=== PATIENT | male | born 1950 | race Caucasian/White ===

== ENCOUNTER 2016-09-18 12:03 | Inpatient (IN) ==
--- NOTE | 2016-09-15 14:49 | Discharge Summary ---
<Sarah Beverly - Last Filed: 09/17/16 21:26> Date of Encounter: 09/17/16 - Discharge Diagnosis (1) Arthritis of knee, right Priority: Primary Status: Acute (2) HTN (hypertension) Priority: Secondary Status: Chronic Qualifiers: Hypertension type: essential hypertension Qualified Code(s): I10 - Essential (primary) hypertension (3) Tobacco abuse Priority: Secondary Status: Chronic (4) RODGER (obstructive sleep apnea) Priority: Secondary Status: Chronic - Discharge Medications Home Medications: Amlodipine [Amlodipine Besylate] 10 mg PO DAILY 02/26/15 [History] Finasteride [Proscar] 5 mg PO HS 02/26/15 [History] Niacin 500 mg PO BID 02/26/15 [History] Coconut Oil 1,000 mg PO DAILY 09/13/16 [History] Losartan/Hydrochlorothiazide [Hyzaar 100-12.5 Tablet] 1 each PO DAILY 09/13/16 [ History] Rosuvastatin Calcium [Crestor] 20 mg PO DAILY 09/13/16 [History] Aspirin Enteric Coated [Aspirin EC] 325 mg PO DAILY #21 tablet. 09/17/16 [Rx] OxyCODONE Immed Rel [Roxicodone 5 MG] 5 - 10 mg PO Q6HR PRN #40 tablet 09/17/16 [Rx] Cholecalciferol (D-3) [Vitamin D] 1,000 unit PO DAILY 09/18/16 [History] Cyanocobalamin (Vitamin B-12) [Vitamin B-12] 1,000 mcg SL DAILY 09/18/16 [ History] Loratadine/Pseudophed (12 HR) [Claritin D (12HR)] 1 each PO DAILY 09/18/16 [ History] Multivitamin [One Daily Essential] 1 each PO DAILY 09/18/16 [History] Allergies/Adverse Reactions: Allergies Temazepam [From Restoril] Adverse Reaction (Mild, Verified 09/18/16 13:24) Hallucinating Primary care physician: No Farley - Patient Status Disposition: Home, Self-Care Condition: Good - Discharge Instructions Follow Up With: Naresh Meediros MD [Partnered Physician] - 10/17/16 8:20 am Sarah Beverly PAC [Physician Healthcare Financial Analyst] - 09/28/16 9:00 am No Farley MD [Primary Care Provider] - 01/30/17 10:15 am Additional Instructions: Discharge Instructions: Total Knee Replacement Please call [facility] ([phone]), your Primary Care Physician, or report to the Emergency Room if you have any of the following symptoms: Nausea, vomiting, fever greater that 101.5, swelling, chest pain, shortness of breath, increased pain/redness/drainage/odor for your incision site, numbness/ tingling, or any other concerning symptoms. ACTIVITY:Weight-bearing as tolerated. You may progress off support (cruthches or walker) as tolerated. MEDICATIONS: Upon discharge resume your home medications. Take all the medications as prescribed. Take a stool softener if taking narcotic pain medications. Stool softeners are only effective if you drink enough fluids. Drink 6-8 glass of water or fluids a day, unless this is not allowed for another health problem. Despite using stool softeners, if you haven't had a bowel movement in 3 days, please switch to a gentle laxative. Gentle laxatives are sold over the counter. You should have a bowel movement within 24 hours, if not call the office. You will be discharged from the hospital with a prescription for pain medication. You are encouraged to decrease the use of narcotic pain medication as tolerated. Should you require a refill, please call the office. [facility] prescribes narcotic pain medication for only 4-6 weeks after surgery. If you require pain medication beyond this time periord, you may be referred to your Primary Care Physician or to the Pain Clinic for further evaluation. Plan ahead for refills on pain medication as many narcotics either need to be picked up at the office or mailed. It is best to call 48-72 hours in advance of needing a prescription refill so you don't run out of medication. To help control the post-operative pain, you may take NSAIDs (Aleve,Advil, Motrin, ibuprofen, naprosyn) or Tylenol as prescribed on the bottle in addition to the pain medication. ANTICOAGULATION (blood thinners): Continue your Aspirin, Lovenox or Coumadin as prescribed to help prevent a blood clot in the leg or in the lungs. As long as your incision remains dry and you tolerate the NSAIDs (Aleve, Advil, Motrin, ibuprofen, naprosyn), it is OK to use the NSAIDS while you are taking your anticoagulation medication. Should your incision start to drain, stop the NSAID and contact our office. Common symptoms of blood clot in the legs include: localized pain, swelling, calf tenderness, redness or discoloration of the skin. Blood clot in the lung symptoms include: shortness of breath, rapid pulse, sweating, and chest pain that worsens with deep breathing, coughing up blood, lightheadedness, feelings of anxiety. If you experience any of these symptoms notify your physician immediately, go to the emergency room, or if having trouble breathing, call 911. WOUND CARE: Leave the dressing on for 7 days. You may change the dressing if it becomes saturated greater than 50%. You can shower but not a tub bath or submerge your incision in water. Wash your hands with antibacterial soap, rinse and dry prior to any wound care. If you have merlin the visiting nurse or rehab facility can remove the stapes 10-14 days [address] surgery [address] steri- strips across the wound. Leave the steri-strips in place until they fall off on their won. You may let water from the shower run on top of the steri-stirips. If you do not have a visiting nurse or rehab facility, you will need to return to the office at 10-14 days for the merlin to be removed. FOLLOW-UP: Please follow up with your surgeon in the orthopedic clinic in 4 weeks from the day of surgery. If you have merlin that need to be removed, you will need to come back to the office in 10-14 days from the day of surgery. - Hospital Course Hospital course: Mr. Hoffmann is a 66 year old male - Time Spent with Patient Total time spent providing and/or coordinating discharge services: <Naresh Medeiros - Last Filed: 09/20/16 08:31> Date of Encounter: 09/20/16 Time of Encounter: 08:30 - Discharge Diagnosis (1) Arthritis of knee, right Priority: Primary Status: Acute (2) HTN (hypertension) Priority: Secondary Status: Chronic Qualifiers: Hypertension type: essential hypertension Qualified Code(s): I10 - Essential (primary) hypertension (3) Tobacco abuse Priority: Secondary Status: Chronic (4) RODGER (obstructive sleep apnea) Priority: Secondary Status: Chronic Primary care physician: No Farley - Patient Status Functional capacity at discharge: uses cane/walker Overall status at discharge: patient is progressing back to baseline - Hospital Course Hospital course: Mr. Hoffmann is a 66 year old male The patient had an uneventful postoperative course. They received antibiotics and physical therapy and were discharged in stable condition. There will follow -up in the office in 2 weeks. Aspirin DVT prophylaxis - Time Spent with Patient Total time spent providing and/or coordinating discharge services:
[2016-09-18] MEDS ORDERED: Albuterol 2.5 MG/3 ML NEBULIZER IH ONE (12:16)
[2016-09-18] MEDS ORDERED: CeFAZolin Pre 2,000 MG/100 ML 2,000 MG/100 ML BAG IVPB ONE (12:16)
[2016-09-18] MEDS ORDERED: Lidocaine -MPF 1% 2 ML VIAL ID ONE (12:16)
--- NOTE | 2016-09-18 12:21 | History & Physical Report ---
Date of Encounter: 09/18/16 Time of Encounter: 12:21 24 Hour HP Update - Instructions Instructions: If the History and Physical is less than 30 days old and was completed prior to A.M. admission and or procedure and has NOT been updated on calendar day of procedure please complete this update prior to performing procedure. - Update Patient reports changes in Medical Condition: No Changes in examination, assessment, or condition: No Changes in Medication: No Preop tests/diagnostics Reviewed: Yes Surgery Remains Indicated: Yes Consent for Planned Operative Procedure(s) Verified: Yes - Pre-Operative Checklist Preoperative Checklist Indicated: No Prophylactic Antibiotic Ordered: Yes Is VTE Prophylaxis Indicated?: Yes
[2016-09-18] MEDS ORDERED: Ringers Solution, Lactated 1,000 ML IVC SCH (12:30)
[2016-09-18] MEDS ORDERED: *HR* Propofol 200 MG/20 ML VIAL IVP ONE (12:37)
[2016-09-18] MEDS ORDERED: *HR* FentaNYL (PF) 100 MCG/2 ML VIAL ONE ×2 (12:37→15:26)
[2016-09-18] MEDS ORDERED: *HR* Midazolam HCl 2 MG/2 ML VIAL ONE (12:37)
[2016-09-18] MEDS ORDERED: Vancomycin 1,500 MG in D5% in Water 250 ML IVPB ONE (13:04)
[2016-09-18] MEDS ORDERED: Famotidine 20 MG/2 ML VIAL IVP ONE (13:21)
--- NOTE | 2016-09-18 13:24 | Anesthesia Evaluation PreOp ---
Date of Encounter: 09/18/16 Time of Encounter: 13:20 - Past History Planned Operation: Rt TKA Cardiac History: HTN, Hyperlipidemia Pulmonary History: Smoker, RODGER Dx (newly diagnosed, not on CPAP) DRUG AND ALCOHOL COUNSELLOR History: Denies Any Significant HX Other Medical History: Denies Any Significant HX Anesthesia History: No Prior Anesthetic Complications Alcohol Use: rarely Drug use: none Medications and Allergies Amlodipine [Amlodipine Besylate] 10 mg PO DAILY 02/26/15 [History] Finasteride [Proscar] 5 mg PO HS 02/26/15 [History] Losartan [Cozaar] 50 mg PO DAILY 02/26/15 [History] Niacin 500 mg PO BID 02/26/15 [History] Coconut Oil 1,000 mg PO DAILY 09/13/16 [History] Desloratadine/Pseudoephedrine [Clarinex-D 12 Hour Tablet] 1 each PO DAILY [History] Losartan/Hydrochlorothiazide [Hyzaar 100-12.5 Tablet] 1 each PO DAILY 09/13/16 [ History] Rosuvastatin Calcium [Crestor] 20 mg PO DAILY 09/13/16 [History] Aspirin Enteric Coated [Aspirin EC] 325 mg PO DAILY #21 tablet. 09/17/16 [Rx] OxyCODONE Immed Rel [Roxicodone 5 MG] 5 - 10 mg PO Q6HR PRN #40 tablet 09/17/16 [Rx] Allergies Temazepam [From Restoril] Adverse Reaction (Mild, Verified 09/13/16 08:15) Hallucinating - Meds/Allergy Pre-op Review Medications Reviewed: Yes Allergies Reviewed: Yes Beta Blockers on Current Med List: No Anesthesia Results - Labs Laboratory Tests 02/02/15 02/02/15 09/05/16 11:22 11:22 09:50 Hgb 15.8 16.3 Hct 48.2 48.2 Plt Count 246 225 Sodium 140 Potassium 3.8 BUN 20 Creatinine 0.90 09/05/16 09:50 Hgb Hct Plt Count Sodium 141 Potassium 3.7 BUN 17 Creatinine 1.00 - Imaging EKG: report reviewed (SR) Additional studies: ECHO 2016 LVEF 60-65% Anesthesia Exam O2 Sat Height 1.73 m Height 1.73 m Height 1.73 m Height 1.74 m Weight 93.894 kg Weight 93.894 kg Weight 93.894 kg Weight 102.058 kg O2 Sat by Pulse Oximetry 95 O2 Sat by Pulse Oximetry 95 Vital Signs Temp Pulse Resp BP Pulse Ox 98.4 F 86 18 148/91 95 09/18/16 12:25 09/18/16 12:25 09/18/16 12:25 09/18/16 12:25 09/18/16 12:25 Height: 5'8 Weight: 207 lbs NPO (# of Hours): MN Pain Scale: 0 - HEENT Pupil (Motor): Pupils equal, EOMI Mallampati: II Teeth: Normal Oral Opening: Greater than 3 - DRUG AND ALCOHOL COUNSELLOR LOC: Oriented DRUG AND ALCOHOL COUNSELLOR Motor: Normal RUE, Normal LUE, Normal RLE, Normal LLE, Normal Face DRUG AND ALCOHOL COUNSELLOR Sensory: Normal: RUE, LUE, RLE, LLE, Face - Cardiac Rhythm: Regular Murmur: None JVD: No Carotid Bruit: No - Pulmonary Breath Sounds: bilateral Clear Respiratory Effort: Symmetrical Anesthesia Assess/Plan ASA Score: 2 Modified Casco Scale for Level of Consciousness: Cooperative, oriented, and tranquil Anesthetic Plan: General, Regional Monitoring Plan: Standard Monitors Recovery Plan: PACU (Discussed GA, agrees to proceed)
[2016-09-18] MEDS ORDERED: Ondansetron 4 MG/2 ML VIAL IVP ONE (14:02)
[2016-09-18] MEDS ORDERED: *HR* HYDROmorphone (PF) 1 MG/ML SYRINGE IVP PRN (14:02)
[2016-09-18] MEDS ORDERED: *HR* Promethazine 25 MG/ML VIAL IVP PRN (14:02)
[2016-09-18] MEDS ORDERED: ROPIVACAINE HCL/PF 0.5% 30 ML VIAL ONE (14:33)
[2016-09-18] MEDS ORDERED: Tetracaine/PF 20 MG/2 ML AMPUL SPINA ONE (14:33)
--- NOTE | 2016-09-18 15:23 | Anesthesia Procedures ---
Date of Encounter: 09/18/16 Time of Encounter: 14:40 Procedures: Anesthesia - Nerve Block Procedure Date: 09/18/16 Time: 14:40 Checklist: Correct Patient Identifier, Correct procedure Correct side: Right Monitor Applied: EKG, BP, Pulse Oximetry Supplemental Oxygen via Nasal Cannula (L/min): 2 Sedation: Versed (mg): 2 Sedation: Fentanyl (mcg): 100 Indication: Post Op Analgesia Pre-op Neuro Deficits: No Block Type: Femoral, Other (iPACK) Catheter placed: No Sterile Technique: Yes Ultrasound used: Yes Anatomy identified: Yes Visual spread of Local: Yes Neuro Stimulation: Yes Nerve Stimulator Range: 0.2 - 0.4 mA Blood on Needle Aspiration: No Smooth Injection of Local: Yes Pain with Injection of Local: No Prep: Chlorhexadine Needle: 22 x 50 mm Stimuplex Local: Ropivacaine (0.5% femoral and 0.25% iPACK) Volume (cc): 30 femoral 20 iPACK Number of Attempts: 1 Complications: None/effective block Vitals: VSS
[2016-09-18] MEDS ORDERED: EPHEDrine 50 MG/ML VIAL ONE (15:31)
[2016-09-18] MEDS ORDERED: Ketorolac 30 MG/ML VIAL ONE (15:44)
--- NOTE | 2016-09-18 15:45 | Orthopedic Operative Note ---
Date of procedure: 09/18/16 Pre-op diagnosis: Right knee arthritis Post-op diagnosis: same Procedure: Procedure: Right Total knee replacement Estimated blood loss: 200 cc Hardware: Arthrex Femur: 8 Tibia: 8 PS insert: 12 Patella: 40 Exam Under anesthesia: Varus alignment 10 degrees loss of extension and full flexion Procedural Notes: Grade 4 arthritic changes medial compartment patellofemoral joint. Operative procedure: The patient was brought to the operating room and placed on the operating room table. After general anesthesia was administered the operative knee was examined. Findings were noted in the exam under anesthesia. The operative extremity was prepped and draped in sterile surgical fashion. The patient received IV antibiotics prior to skin incision. A standard midline incision was made centered over the patella. The incision was made through the skin and subcutaneous tissue. A medial parapatellar tendon approach was performed. Care was taken to preserve tissue along the medial aspect of the patella. And to protect the patella tendon. The deep MCL was released off the medial tibia. The infra patella fat pad was excised. Knee was brought into flexion. Patient noted to have grade 4 arthritic changes medial compartment patellofemoral joint. The entry hole was made for the intramedullary femoral guide. The guide was seated in 6 degrees of valgus. Anterior cut was made followed by the distal cut. The ACL the PCL the medial and the lateral menisci were excised. The tibia was subluxed forward. The entry hole was made for the intramedullary tibial guide. Guide was seated to resect 2 mm off the more abnormal side. The knee was brought into flexion the distal femur was sized to an 8. The femoral guide was seated, the anterior cut was made followed by the posterior condylar cut, followed by the chamfer cuts. The finishing guide was seated the box cut was made and the lug holes were drilled. The tibia was sized to an 8, the tibial tray was seated and prepared with the large drill followed by the fin cutter. Trial reduction revealed full extension no varus valgus instability with the appropriate 12 PS Alison. The patella was everted and cut was made at the level of the insertion of the quadriceps and patella tendon. The patella was sized to a 40 the guide was seated and the lug holes are drilled. Trial reduction revealed excellent patella tracking. All trial components were removed all bony surfaces were irrigated. The tibia was cemented first followed by the femur. The 12 PS Alison was seated and the knee was brought into full extension. The patella was cemented and held in place with the patellar holding clamp. After the cement had hardened, the knee sat for 2 minutes with a Betadine saline solution. The knee was then irrigated out with 2 L of pulse irrigation. The extensor mechanism was closed with #2 FiberWire suture and #2 PDS suture. The subcutaneous tissue was then irrigated and closed deep with #1 PDS suture superficially with 0 PDS suture and skin was closed with skin merlin. The patient was then placed in a sterile dressing and a postoperative brace extubated and transferred to recovery room in stable condition. Anesthesia: GETColeman Surgeon: Naresh Medeiros Rod Cup Filler: Sarah Beverly Condition: stable Disposition: PACU
--- NOTE | 2016-09-18 16:47 | Anesthesia Evaluation Post Op ---
Date of Encounter: 09/18/16 Time of Encounter: 16:47 - Vital Signs Vital Signs: Vital Signs/O2 Sat, Most Current Temp Pulse Resp BP Pulse Ox 98.9 F 70 14 137/79 96 09/18/16 16:42 09/18/16 16:42 09/18/16 16:42 09/18/16 16:42 09/18/16 16:42 - Lungs Lungs: Clear Ascult./Percussion - Airway Airway: Non-obstructed - Cardiovascular Regular Rate - Mental Status Mental Status: Alert & Oriented, Answers Appropriately - Pain Pain Scale: 3 Pain Scale used: Numeric (1 - 10) - Nausea Vomiting Nausea Vomiting: Not Present - Hydration Hydration: Ice chips, Has not voided - Discharge PostOp Status: Transfer Patient to floor
[2016-09-18] MEDS ORDERED: Naloxone 0.4 MG/ML INJ IVP PRN (17:11)
[2016-09-18] MEDS ORDERED: *HR* OxyCODONE Immed Rel 5 MG TABLET PO PRN (17:11)
[2016-09-18] MEDS ORDERED: Temazepam 15 MG CAPSULE PO PRN (17:11)
[2016-09-18] MEDS ORDERED: Acetaminophen 325 MG TABLET PO PRN (17:11)
[2016-09-18] MEDS ORDERED: Sennosides 8.6 MG TABLET PO PRN (17:11)
[2016-09-18] MEDS ORDERED: MOM Conc 10 ML UD.LIQ PO PRN (17:11)
[2016-09-18] MEDS: Ringers Solution, Lactated 1,000 ML IVC SCH (17:52)
[2016-09-18] MEDS: *HR* OxyCODONE Immed Rel 5 MG TABLET PO PRN (17:52)
[2016-09-18] MEDS: *HR* Enoxaparin 30 MG/0.3 ML SYRINGE SQ SCH (17:54)
[2016-09-18] MEDS ORDERED: *HR* Enoxaparin 30 MG/0.3 ML SYRINGE SQ SCH (18:00)
[2016-09-18 19:43] LABS: Hematocrit 45.1 % (37.5-50.1); Hemoglobin 14.6 g/dL (12.9-16.9)
[2016-09-18] MEDS: NIACIN 500 MG PO SCH (21:37)
[2016-09-18] MEDS: Finasteride 5 MG TABLET PO SCH (21:40)
[2016-09-19] MEDS: *HR* Enoxaparin 30 MG/0.3 ML SYRINGE SQ SCH ×2 (05:05→17:56)
[2016-09-19] MEDS: *HR* HYDROmorphone (PF) 1 MG/ML SYRINGE IVP PRN ×2 (05:06→21:04)
[2016-09-19] MEDS: Ringers Solution, Lactated 1,000 ML IVC SCH (05:06)
--- NOTE | 2016-09-19 06:51 | Orthopedics Progress Note ---
Date of Encounter: 09/19/16 Time of Encounter: 06:50 - Assessment and Plan (1) Arthritis of knee, right Current Visit: Yes Status: Acute (2) HTN (hypertension) Current Visit: Yes Status: Chronic Qualifiers: Hypertension type: essential hypertension Qualified Code(s): I10 - Essential (primary) hypertension (3) Tobacco abuse Current Visit: Yes Status: Chronic (4) RODGER (obstructive sleep apnea) Current Visit: Yes Status: Chronic Subjective Interval history: Patient was seen this morning doing well without complaints. Afebrile vital signs stable. Operative extremity: Neurovascularly intact Dressing clean dry and intact Calves nontender Assessment and plan: Continue with postoperative care Hematocrit 45 Objective Vital signs: Vital Signs Temp Pulse Resp BP Pulse Ox 09/19/16 06:45 97.9 F 90 18 149/85 94 09/19/16 04:00 98.0 F 75 16 121/80 97 09/18/16 23:49 98.0 F 75 17 130/81 97 09/18/16 22:23 97 09/18/16 20:00 97.8 F 77 18 131/84 97 09/18/16 19:00 97.7 F 74 18 129/83 96 09/18/16 18:00 97.6 F 76 18 143/80 93 09/18/16 17:30 97.8 F 80 18 134/80 94 09/18/16 17:00 97.5 F L 79 18 136/85 93 09/18/16 16:42 98.9 F 70 14 137/79 96 09/18/16 16:32 82 14 133/83 98 09/18/16 16:22 79 14 124/80 93 09/18/16 16:12 98.5 F 88 14 138/82 94 09/18/16 14:44 84 16 132/90 95 09/18/16 12:32 18 95 09/18/16 12:25 98.4 F 86 18 148/91 95 Intake and Output 09/18/16 09/18/16 09/19/16 15:59 23:59 07:59 Intake Total 1850 / 1850 Output Total 1825 / 1825 1350 / 1350 Balance -1825 / -1825 500 / 500 Intake: IV Fluids 700 / 700 Lactated Ringers 1,000 ML 700 / 700 @ 75 mls/hr IVC .[id number] [facility] Rx#:[id number] Oral 1150 / 1150 Output: Urine 1625 / 1625 1350 / 1350 Estimated Blood Loss 200 / 200 Other: Weight 93.894 kg - Labs CBC & BMP: 09/18/16 18:55 - VTE Documentation of Mechanical Device: Venous foot pump, device Consult Discharge Plan - Plan Referrals: No Farley MD [Primary Care Provider] -
[2016-09-19 07:04] LABS: Hematocrit 40.9 % (37.5-50.1); Hemoglobin 13.5 g/dL (12.9-16.9)
[2016-09-19 07:23] LABS: BUN/Creatinine Ratio 15 (6-26); Blood Urea Nitrogen 13 mg/dL (8-26); Calcium 9.1 mg/dL (8.6-10.8); Carbon Dioxide 20 mEq/L (19-29); Chloride 107 mEq/L (98-109); Glucose 132 mg/dL (70-99); Osmolality,Calculated 292 (280-300); Potassium 3.9 mEq/L (3.5-4.5); Sodium 140 mEq/L (136-145); eGFR For African Americans > 60 (> 60); eGFR For Non-African Americans > 60 (> 60)
[2016-09-19] MEDS: Cyanocobalamin (B-12) 1,000 MCG TABLET PO SCH (09:28)
[2016-09-19] MEDS: Loratadine/Pseudophed (12 HR) 1 EACH TABLET PO SCH (09:28)
[2016-09-19] MEDS: *HR* OxyCODONE Immed Rel 5 MG TABLET PO PRN ×3 (09:28→17:56)
[2016-09-19] MEDS: Multivit/Ca/Min/Fe/FA 1 TAB TABLET PO SCH (09:28)
[2016-09-19] MEDS: amLODIPine 5 MG TABLET PO SCH (09:28)
[2016-09-19] MEDS: Cholecalciferol (D-3) 1,000 UNIT TABLET PO SCH (09:28)
[2016-09-19] MEDS: NIACIN 500 MG PO SCH ×2 (09:29→21:04)
[2016-09-19] MEDS: COCONUT OIL 1000 MG PO SCH (09:29)
[2016-09-19] MEDS: Ondansetron 4 MG/2 ML VIAL IVP PRN (12:27)
[2016-09-19] MEDS ORDERED: Vancomycin 1,500 MG in D5% in Water 250 ML IV ONE (14:35)
[2016-09-19] MEDS ORDERED: ceFAZolin 2,000 MG in D5% in Water 100 ML IVPB SCH (18:00)
[2016-09-19] MEDS: Finasteride 5 MG TABLET PO SCH (21:04)
[2016-09-20] MEDS: Ondansetron 4 MG/2 ML VIAL IVP PRN (01:18)
[2016-09-20] MEDS: *HR* OxyCODONE Immed Rel 5 MG TABLET PO PRN ×2 (01:20→10:02)
[2016-09-20] MEDS: *HR* Enoxaparin 30 MG/0.3 ML SYRINGE SQ SCH (05:29)
[2016-09-20 06:43] LABS: Hematocrit 36.3 % (37.5-50.1)
[2016-09-20 06:53] LABS: Hemoglobin 11.7 g/dL (12.9-16.9)
[2016-09-20 07:03] LABS: BUN/Creatinine Ratio 15 (6-26); Blood Urea Nitrogen 13 mg/dL (8-26); Calcium 9.3 mg/dL (8.6-10.8); Carbon Dioxide 22 mEq/L (19-29); Chloride 105 mEq/L (98-109); Glucose 148 mg/dL (70-99); Osmolality,Calculated 291 (280-300); Potassium 3.9 mEq/L (3.5-4.5); Sodium 139 mEq/L (136-145); eGFR For African Americans > 60 (> 60); eGFR For Non-African Americans > 60 (> 60)
[2016-09-20 07:16] VITALS: BP 145/80
--- NOTE | 2016-09-20 08:32 | Orthopedics Progress Note ---
Date of Encounter: 09/20/16 Time of Encounter: 08:31 - Assessment and Plan (1) Arthritis of knee, right Current Visit: Yes Status: Acute (2) HTN (hypertension) Current Visit: Yes Status: Chronic Qualifiers: Hypertension type: essential hypertension Qualified Code(s): I10 - Essential (primary) hypertension (3) Tobacco abuse Current Visit: Yes Status: Chronic (4) RODGER (obstructive sleep apnea) Current Visit: Yes Status: Chronic Subjective Interval history: Patient was seen this morning doing well without complaints. Afebrile vital signs stable. Operative extremity: Neurovascularly intact Dressing clean dry and intact Calves nontender Assessment and plan: Continue with postoperative care discharged today Objective Vital signs: Vital Signs Temp Pulse Resp BP Pulse Ox 09/20/16 07:15 99.1 F 90 16 145/80 93 09/20/16 04:21 98.5 F 89 16 132/74 92 09/20/16 00:39 98.0 F 92 16 157/71 95 09/19/16 20:31 98.2 F 89 16 143/80 90 09/19/16 15:44 98.2 F 90 18 132/71 93 09/19/16 11:07 97.8 F 89 18 145/77 93 Intake and Output 09/19/16 09/20/16 09/20/16 23:59 07:59 15:59 Intake Total 1250 / 1250 Output Total 150 / 150 Balance 1100 / 1100 Intake: IV Fluids 1250 / 1250 Vancocin 1,500 MG In 250 / 250 Dextrose 5% 250 ML @ 167 mls/hr IV ONCE ONE Rx#: [id number] Lactated Ringers 1,000 ML 1000 / 1000 @ 75 mls/hr IVC .[id number] [facility] Rx#:[id number] Output: Urine 150 / 150 Other: # Voids 1 - Labs CBC & BMP: 09/20/16 06:14 09/20/16 06:14 Labs: Abnormal lab results Hgb 11.7 g/dL (12.9-16.9) L D 09/20/16 06:14 Hct 36.3 % (37.5-50.1) L 09/20/16 06:14 Glucose 148 mg/dL (70-99) H 09/20/16 06:14 - VTE Documentation of Mechanical Device: Venous foot pump, device Consult Discharge Plan - Plan Additional Instructions: Discharge Instructions: Total Knee Replacement Please call [facility] ([phone]), your Primary Care Physician, or report to the Emergency Room if you have any of the following symptoms: Nausea, vomiting, fever greater that 101.5, swelling, chest pain, shortness of breath, increased pain/redness/drainage/odor for your incision site, numbness/ tingling, or any other concerning symptoms. ACTIVITY:Weight-bearing as tolerated. You may progress off support (cruthches or walker) as tolerated. MEDICATIONS: Upon discharge resume your home medications. Take all the medications as prescribed. Take a stool softener if taking narcotic pain medications. Stool softeners are only effective if you drink enough fluids. Drink 6-8 glass of water or fluids a day, unless this is not allowed for another health problem. Despite using stool softeners, if you haven't had a bowel movement in 3 days, please switch to a gentle laxative. Gentle laxatives are sold over the counter. You should have a bowel movement within 24 hours, if not call the office. You will be discharged from the hospital with a prescription for pain medication. You are encouraged to decrease the use of narcotic pain medication as tolerated. Should you require a refill, please call the office. [facility] prescribes narcotic pain medication for only 4-6 weeks after surgery. If you require pain medication beyond this time periord, you may be referred to your Primary Care Physician or to the Pain Clinic for further evaluation. Plan ahead for refills on pain medication as many narcotics either need to be picked up at the office or mailed. It is best to call 48-72 hours in advance of needing a prescription refill so you don't run out of medication. To help control the post-operative pain, you may take NSAIDs (Aleve,Advil, Motrin, ibuprofen, naprosyn) or Tylenol as prescribed on the bottle in addition to the pain medication. ANTICOAGULATION (blood thinners): Continue your Aspirin, Lovenox or Coumadin as prescribed to help prevent a blood clot in the leg or in the lungs. As long as your incision remains dry and you tolerate the NSAIDs (Aleve, Advil, Motrin, ibuprofen, naprosyn), it is OK to use the NSAIDS while you are taking your anticoagulation medication. Should your incision start to drain, stop the NSAID and contact our office. Common symptoms of blood clot in the legs include: localized pain, swelling, calf tenderness, redness or discoloration of the skin. Blood clot in the lung symptoms include: shortness of breath, rapid pulse, sweating, and chest pain that worsens with deep breathing, coughing up blood, lightheadedness, feelings of anxiety. If you experience any of these symptoms notify your physician immediately, go to the emergency room, or if having trouble breathing, call 911. WOUND CARE: Leave the dressing on for 7 days. You may change the dressing if it becomes saturated greater than 50%. You can shower but not a tub bath or submerge your incision in water. Wash your hands with antibacterial soap, rinse and dry prior to any wound care. If you have merlin the visiting nurse or rehab facility can remove the stapes 10-14 [address] surgery [address] steri- strips across the wound. Leave the steri-strips in place until they fall off on their won. You may let water from the shower run on top of the steri-stirips. If you do not have a visiting nurse or rehab facility, you will need to return to the office at 10-14 days for the merlin to be removed. FOLLOW-UP: Please follow up with your surgeon in the orthopedic clinic in 4 weeks from the day of surgery. If you have merlin that need to be removed, you will need to come back to the office in 10-14 days from the day of surgery. Referrals: Naresh Medeiros MD [Partnered Physician] - 10/17/16 8:20 am Sarah Beverly PAC [Physician Reaming Machine Tender] - 09/28/16 9:00 am No Farley MD [Primary Care Provider] - 01/30/17 10:15 am
[2016-09-20] MEDS: Cholecalciferol (D-3) 1,000 UNIT TABLET PO SCH (08:39)
[2016-09-20] MEDS: Loratadine/Pseudophed (12 HR) 1 EACH TABLET PO SCH (08:39)
[2016-09-20] MEDS: amLODIPine 5 MG TABLET PO SCH (08:39)
[2016-09-20] MEDS: Cyanocobalamin (B-12) 1,000 MCG TABLET PO SCH (08:39)
[2016-09-20] MEDS: Multivit/Ca/Min/Fe/FA 1 TAB TABLET PO SCH (08:39)
[2016-09-20] MEDS: COCONUT OIL 1000 MG PO SCH (08:40)
[2016-09-20] MEDS: NIACIN 500 MG PO SCH (08:40)
== END 2016-09-20 10:34 | disposition home or self-care (01) | DRG 470 ==
LOC: SAMDAY 12:03 → 3NENU 16:50
PROVIDERS: ADMIT Orthopaedic Surgery; ATTEND Orthopaedic Surgery